=== PATIENT | female | born 1980 | race Caucasian/White ===

== ENCOUNTER 2018-05-29 12:28 | Outpatient (CLI) | payer MEDICAID ==
[~2018-05-29 12:28] MED LIST: CLIN-26 PO; MOT200T PO; PHEN-786 PO
== END 2018-05-29 23:59 | disposition home or self-care (01) ==
LOC: VAS 12:28
PROVIDERS: ATTEND Family Medicine
DX: I82.890 Acute embolism and thrombosis of other specified veins (principal); I82.432 Acute embolism and thrombosis of left popliteal vein; F17.200 Nicotine dependence, unspecified, uncomplicated
CPT/HCPCS: 93971

== ENCOUNTER 2021-08-03 16:44 | Emergency (ER) | payer MEDICAID ==
[~2021-08-03] VITALS: Ht 162.6 cm; Wt 70.5 kg
[2021-08-03] MEDS ORDERED: acetaminophen 325mg tablet PO STA (17:21)
[2021-08-03] MEDS ORDERED: normal saline 1000ML IV soln IV ONE (17:25)
[2021-08-03 17:30] LABS: BASOPHILS # (AUTO) 0.1 X10'3 (0-0.2); BASOPHILS % (AUTO) 0.4 % (0-1); EOSINOPHILS % (AUTO) 0.2 % (0-6); LYMPHOCYTES # (AUTO) 1.3 X10'3 (1.1-4.8); LYMPHOCYTES % (AUTO) 5.5 % (21-51); MEAN PLATELET VOLUME 7.3 FL (7.4-10.4); MONOCYTES # (AUTO) 2.3 X10'3 (0-0.9); MONOCYTES % (AUTO) 9.9 % (2-12); NEUTROPHILS # (AUTO) 19.1 X10'3 (1.8-7.7); PLATELET COUNT 585 X10'3 (140-440); WHITE BLOOD COUNT 22.8 X10'3 (4.5-11.0)
[2021-08-03 17:43] LABS: ALANINE AMINOTRANSFERASE 17 U/L (12-78); ALBUMIN 3.6 G/DL (3.4-5.0); ALBUMIN/GLOBULIN RATIO 0.8 (1.1-1.5); ALKALINE PHOSPHATASE 109 IU/L (46-116); ANION GAP 11 (8-16); ASPARTATE AMINO TRANSFERASE 18 U/L (10-37); BILIRUBIN,TOTAL 0.8 MG/DL (0.1-1.0); BLOOD UREA NITROGEN 11 MG/DL (7-18); BUN/CREATININE RATIO 12.8 (6.6-38.0); CALCIUM 8.5 MG/DL (8.5-10.1); CHLORIDE 97 MMOL/L (99-107); CREATININE 0.86 MG/DL (0.40-0.90); GLUCOSE 125 MG/DL (70-104); POTASSIUM 3.5 MMOL/L (3.5-5.1); SODIUM 133 MMOL/L (135-145); TOTAL CARBON DIOXIDE 25.2 MMOL/L (24-32); eGFR 73 ML/MIN
[2021-08-03 18:32] LABS: HEMATOCRIT 28.9 % (35.0-45.0); HEMOGLOBIN 9.3 g/dl (12.0-16.0); MEAN CORPUSCULAR HEMOGLOBIN 18.7 PG (27.0-31.0); MEAN CORPUSCULAR VOLUME 57.9 FL (78-98); RED BLOOD COUNT 4.98 X10'6 (4.20-5.60)
[2021-08-03 18:33] LABS: MEAN CORPUSCULAR HGB CONC 32.4 g/dL (33.0-36.5); RED CELL DISTRIBUTION WIDTH 17.9 % (11.5-14.5)
[2021-08-03] MEDS ORDERED: CefTRIAXone 2gm/D5W 50ml BAG 50 ML IV ONE (18:45)
[2021-08-03 19:57] LABS: CLARITY,URINE SLIGHTLY CLOUDY (Clear); COLOR,URINE YELLOW (Yellow); GLUCOSE, URINE NEGATIVE (Neg); KETONES,URINE TRACE mg/dl (Neg); LEUKOCYTE ESTERASE ,URINE TRACE (Neg); NITRITES, URINE POSITIVE (Neg); OCCULT BLOOD,URINE SMALL (Neg); PH,URINE 6.5 (4.8-8.0); PROTEIN,URINE 30 mg/dl (Neg)
[2021-08-03 19:59] LABS: UA COLLECTION TYPE CLN CATCH MIDSTREAM
[2021-08-03 20:09] LABS: URINE AMPHETAMINE SCREEN POSITIVE (Neg); URINE BARBITUATE SCREEN NEGATIVE (Neg); URINE BENZODIAZEPINES SCREEN NEGATIVE (Neg); URINE CANNABINOID SCREEN NEGATIVE (Neg); URINE COCAINE SCREEN NEGATIVE (Neg); URINE METHADONE SCREEN NEGATIVE (Neg); URINE OPIATE SCREEN NEGATIVE (Neg); URINE PHENCYCLIDINE SCREEN NEGATIVE (Neg)
[2021-08-03 20:13] LABS: BACTERIA,URINE 3+ /HPF (Neg)
[2021-08-03 20:14] LABS: MUCUS STRANDS FEW /LPF (Neg); SQUAMOUS EPITHELIAL CELL,UR FEW /LPF (FEW)
[2021-08-03 20:16] LABS: TRIPLE PHOSPHATE CRYST 1+ /HPF (NEGATIVE)
[2021-08-03] MEDS ORDERED: LEVO500T90 PO (20:18)
[2021-08-03 20:47] VITALS: BP 135/85
[2021-08-03 21:46] LABS: ANISOCYTOSIS 2+; MICROCYTOSIS 2+; PLATELET ESTIMATE INCREASED
[2021-08-03 21:48] LABS: ELLIPTOCYTES FEW; ROULEAUX 1+
[2021-08-03 22:06] LABS: LARGE PLATELETS FEW
== END 2021-08-03 20:50 | disposition home or self-care (01) ==
LOC: ER 16:46
DX: N12 Tubulo-interstitial nephritis, not specified as acute or chronic (principal); Z20.822 Contact with and (suspected) exposure to COVID-19; R10.31 Right lower quadrant pain; R50.9 Fever, unspecified; R05.9 Cough, unspecified; R06.02 Shortness of breath; F17.200 Nicotine dependence, unspecified, uncomplicated; Z72.89 Other problems related to lifestyle; Z56.0 Unemployment, unspecified; Z79.2 Long term (current) use of antibiotics; Z79.899 Other long term (current) drug therapy
CPT/HCPCS: 36415; 71045; 80053; 80305; 81001; 83605; 84145; 85008; 85025; 87040; 87077; 87088; 87186; 87502; 87503; 87635; 93005; 96365; 96366; 99285; C9803; J0696; J7030

== ENCOUNTER 2024-11-16 00:25 | Emergency (ER) | payer MEDICAID ==
[~2024-11-16] VITALS: Ht 162.6 cm; Wt 67.3 kg
[2024-11-16 00:29] VITALS: BP 169/105; PULSE 120; RESP 18; TEMP 98.2; O2SAT 100
== END 2024-11-16 02:04 | disposition home or self-care (01) ==
LOC: ER 00:26
DX: S61.411A Laceration without foreign body of right hand, initial encounter (principal); Z53.21 Procedure and treatment not carried out due to patient leaving prior to being seen by health care provider; W26.0XXA Contact with knife, initial encounter; Y93.89 Activity, other specified; Y92.89 Other specified places as the place of occurrence of the external cause; Y99.8 Other external cause status